=== PATIENT | male | born 1980 | race Two or more races ===

== ENCOUNTER 2017-04-02 16:41 | Emergency (ER) | payer SELFPAY ==
[~2017-04-02] VITALS: Ht 167.6 cm; Wt 90.7 kg
[2017-04-02 17:05] VITALS: BP 109/71
[2017-04-02] MEDS ORDERED: SULF1TAB24 PO (17:32)
--- NOTE | 2017-04-02 17:32 | PHYS DOC ---
Past Medical History Past Medical History: No Pertinent History Past Surgical History: No Surgical History Alcohol Use: Occasionally Drug Use: None Adult General Chief Complaint Chief Complaint: INSECT BITE HPI HPI Patient is a 36 year old [place]i-speaking male who presents with a possible insect bite on the right lower abdomen that he noted 6 days ago. Patient denies any fever. Patient states the area has grown bigger and more red int he last three days. Patient is primarily [place]i-speaking and the is interpreting for us Review of Systems Review of Systems Constitutional: Denies fever or chills [] Musculoskeletal: Denies back pain or joint pain [] Integument: Insect bite to the right lower abdomen Neurologic: Denies headache, focal weakness or sensory changes [] ] Current Medications Current Medications Current Medications Medications (Trade) Dose Ordered Sig/Vivian Start Time Stop Time Status Last Admin Dose Admin Diphtheria/ Tetanus/Acell Pertussis (Boostrix) 0.5 ml ONCE ONCE 04/02/17 17:45 04/02/17 17:46 Allergies Allergies Allergies Coded Allergies Type Severity Reaction Last Updated Verified No Known Drug Allergies 04/02/17 No Physical Exam Physical Exam Constitutional: Well developed, well nourished, no acute distress, non-toxic appearance. [] Skin: Right lower abdomen with an area of cellulitis approximately 5 x 3 cm. The area has a firm center with no fluctuance. There is a tiny puncture wound to the middle of the area suspicious of an insect bite. The area is very warm tender to touch. Back: No tenderness, no CVA tenderness. [] Extremities: No tenderness, no cyanosis, no clubbing, ROM intact, no edema. [] Neurologic: Alert and oriented X 3, normal motor function, normal sensory function, no focal deficits noted. [] Psychologic: Affect normal, judgement normal, mood normal. [] Current Patient Data Vital Signs Vital Signs Date Time Temp Pulse Resp B/P (MAP) Pulse Ox O2 Delivery O2 Flow Rate FiO2 04/02/17 17:05 97.8 64 18 98 Room Air 97.8 EKG EKG [] Radiology/Procedures Radiology/Procedures [] Course & Med Decision Making Course & Med Decision Making Pertinent Labs and Imaging studies reviewed. (See chart for details) Patient is in the ED with an abscess and cellulitis to the right lower abdomen probably from an insect bite. The abscess is not fluctuant and not ready to be drained. He was given tetanus in the ED. He was discharged with Bactrim for 10 days. Recommended warm compresses to the area. Instructed to return to the ED symptoms worsen. Discharged in stable condition. Dragon Disclaimer Dragon Disclaimer This electronic medical record was generated, in whole or in part, using a voice recognition dictation system. Departure Departure Impression: Primary Impression: Abscess, abdomen Additional Impression: Cellulitis of abdominal wall Disposition: HOME, SELF-CARE Condition: STABLE Patient Instructions: Abscess, Care After, Cellulitis, [id number] Additional Instructions: You were seen for an abscess with cellulitis of the right lower abdomen. This could've occurred from an insect bite. Keep the area clean and dry. Apply warm compresses to the area twice a day. Complete your prescribed antibiotics. Follow -up with your doctor in one week. Come back to the ED if symptoms worsen. Scripts Sulfamethoxazole/Trimethoprim (BACTRIM DS TABLET) 1 Each Tablet 1 TAB PO BID, #20 TAB Prov: THEODORA RICHARDSON APRN 04/02/17 Problem Qualifiers THEODOAR RICHARDSON APRN Apr 02, 2017 17:32
[2017-04-02] MEDS ORDERED: DIPHTH,PERTUSS(ACELL),TET TOX 0.5 ML DISP.SYRIN. VAX IM ONE (17:45)
== END 2017-04-02 18:00 | disposition home or self-care (01) ==
LOC: ER 16:41
DX: L02.211 Cutaneous abscess of abdominal wall (principal); L03.311 Cellulitis of abdominal wall
CPT/HCPCS: 90471; 90715; 99284; 99283-25